=== PATIENT | female | born 1980 | race Caucasian/White ===

== ENCOUNTER 2018-08-27 08:44 | Observation (INO) | payer BC ==
[2018-08-27 09:15] LABS: PLATELET COUNT 325 10^3/uL (150-400)
[2018-08-27] MEDS ORDERED: NS 1,000 ML IV ONE (09:16)
[2018-08-27] MEDS ORDERED: ASPIRIN 81 MG CHEWABLE TAB PO ONE (09:16)
--- NOTE | 2018-08-27 09:22 | EDPHY ---
General Time Seen by Provider: 08/27/18 09:02 Narrative: CLINICAL IMPRESSION: Chest pain, shortness of breath ASSESSMENT/PLAN: 38-year-old female with no reported medical history presents to the emergency department with intermittent left anterior stabbing and heavy chest pain associated with shortness of breath that began yesterday morning. Pain became worse at 4:00 a.m. This morning and radiated into the left arm. Initial EKG shows inverted T-waves V1, V2, V3, and lead 3, no ST segment changes. HR variable in ED between upper 30's and low 70's. No hypoxia, tachypnea, or respiratory distress. Patient is otherwise healthy, has heart score of 2, no cardiac risk factors, no family history. She travels frequently for work. No asymmetric lower extremity swelling or calf pain. D-dimer negative, troponin negative, chest x-ray with no acute cardiopulmonary disease, remainder of lab work reassuring. On reassessment, patient is tearful, stating "I just do not feel right". Admits that she was feeling short of breath walking to the restroom. Had a long discussion with her regarding heart score and risk for adverse cardiac events. Despite a reassuring workup, patient clinically does not appear well and is feeling poorly. Based on this, admission was discussed and offered and patient has agreed. I discussed with Saira from hospitalist service. Patient will be admitted to Dr. Crenshaw service. DIFFERENTIAL DX: Differential diagnosis includes but not limited to myocardial ischemia, pulmonary embolus, chest wall pain, pleural inflammation, musculoskeletal chest wall pain, aortic aneurysm, and pulmonary infectious causes. ED PROCEDURES: See lab and/or imaging results below ED COURSE: EKG obtained at 9:15 a.m., interpreted by myself shortly thereafter. Patient has sinus rhythm, inverted T-waves in V1, V2, V3, and lead 3. Discussed EKG with Dr. Saldaña at 9:20 a.m. 10:00 a.m.:. Lab work all essentially normal, negative troponin, negative D- dimer, no anemia, electrolytes normal, renal function normal, chest x-ray with no acute abnormality. page technician reported patient felt very uncomfortable and short of breath walking to the restroom. She is a heart score of 2. Discussed again with Dr. Saldaña. Given the patient is feeling poorly, I will have shared decision making, review her heart score and discuss admission for further workup. 10:15 a.m.: Patient has decided to be admitted. Page to hospitalist. Declining further pain medication at this time. CHIEF COMPLAINT: Chest pain HPI: This is a 38-year-old otherwise healthy female who presents to the emergency department today with left anterior stabbing and heavy chest pain that began at 9:00 a.m. Yesterday while she was at work. Patient reports the pain was bad enough yesterday that she not only had to stop her conference call early but go home and rest. Pain was intermittent throughout the evening and night. She was a woken at 4:00 a.m. With worsening stabbing pain to the point that she was crying. She called her primary care doctor this morning and was told to come to the ED. She reports in route the pain was very severe but has wax and waned. She does currently have a dull pressure sensation that radiates slightly to the left arm. No radiation to the neck jaw or back. She did report some associated shortness of breath this morning and pain is worse when she lays down. She had no appetite to eat dinner last night but reports no vomiting and states she is "chronically nauseous". There is no pleuritic component to the pain. She has never had a pain like this before. No recent URI, cough, or underlying pulmonary disease. Patient reports she travels "all the time" for work, at least 150 days a year and at least once or twice a week. No reported asymmetric leg or calf swelling. No first-degree family relative with cardiac disease. She is a nonsmoker, does not use estrogen based control, reports no . She did not take anything for the pain this morning. She has an allergy to red dye PAST MEDICAL HISTORY: None reported See nurse/triage notes for additional history if applicable Pertinent Past Surgical History: None reported Family History: No first-degree family relative with cardiac disease Social History: Nonsmoker, , does not used estrogen based control REVIEW OF SYSTEMS: All other systems negative Constitutional: No fever, no chills, positive for appetite change. Eyes: No discharge, vision change ENT: No sore throat, congestion, ear pain. Cardiovascular: Positive for stabbing, pressure, chest pain no palpitations. Respiratory: No cough, positive for shortness of breath. Gastrointestinal: No abdominal pain, no vomiting, positive nausea, diarrhea. Genitourinary: No hematuria, dysuria, flank pain, pelvic pain Musculoskeletal: No back pain, joint swelling, joint pain, myalgias. Skin: No rashes, color change. Neurological: No headache, dizziness, weakness. PHYSICAL EXAM: General Appearance: Alert, oriented, appropriate, cooperative, appears intermittently uncomfortable, grabbing her left anterior chest, well hydrated, non-toxic appearing, hypotensive, no hypoxia. HEENT: Oropharynx clear is no erythema or exudates, no tonsillar hypertrophy or asymmetry. Dentition without abnormality.] Neck: Supple, nontender, no lymphadenopathy, no midline pain, FROM, no meningismus, no JVD. Respiratory: There are no retractions, lungs are clear to auscultation. Cardiac: Regular rate and rhythm, no murmurs or gallops. No reproducible chest pain to palpation of anterior chest wall Gastrointestinal: Abdomen is soft, nontender, bowel sounds normal, no masses/ hernia, no rigidity, guarding or focal peritoneal findings. Neurological: Alert and oriented x 3, CN 2-12 grossly intact, normal gait no ataxia, DTR's intact, normal sensation and strength Skin: Warm, dry, no rashes, no nodules on palpation. Musculoskeletal: Extremities are symmetrical, full range of motion, no tenderness, deformity, swelling, or erythema. No asymmetric calf pain, swelling or erythema Psychiatric: Patient is oriented X 3, there is no agitation. MEDICAL DECISION MAKING: Patient was seen independently. Secondary supervising physician at time of evaluation was Dr. Saldaña . Diagnosis: Chest pain, intermittent bradycardia, shortness of breath. New, requires workup Summary: See Assessment and Plan for summary of ED visit Clinical lab tests: ordered / reviewed. Independent visualization of images, tracing, or specimens: Yes. Decision to obtain medical records or history from someone other than the patient: No Review / Summarize previous medical records: None available Discussed patient with another provider: Saira Draper from hospital service Patient Progress: Stable. - Diagnostics Imaging Results: Imaging Impressions Chest X-Ray 08/27/18 09:04 Impression: Possible mild airways disease. Otherwise negative. - History Smoking Status: Never smoked - Objective Vital Signs: Initial Vital Signs Temperature (C) 36.4 C 08/27/18 08:51 Heart Rate 73 08/27/18 08:51 Respiratory Rate 16 08/27/18 08:51 Blood Pressure 94/62 L 08/27/18 08:51 O2 Sat (%) 95 08/27/18 08:51 O2 Delivery Mode Room Air Allergies/Adverse Reactions: red dye Allergy (Verified 08/27/18 08:50) Laboratory Results: Laboratory Results 08/27/18 09:05 08/27/18 09:05 08/27/18 08/27/18 08/27/18 09:10 09:10 09:07 WBC RBC Hgb Hct MCV MCH MCHC RDW Plt Count MPV Neut % (Auto) Lymph % (Auto) [place] % (Auto) Eos % (Auto) Baso % (Auto) Nucleat RBC Rel Count Absolute Neuts (auto) Absolute Lymphs (auto) Absolute Monos (auto) Absolute Eos (auto) Absolute Basos (auto) Absolute Nucleated RBC Immature Gran % Immature Gran # D-Dimer 0.40 ug/mLFEU ug/mLFEU (0.00-0.50) Sodium Potassium Chloride Carbon Dioxide Anion Gap BUN Creatinine Estimated GFR Glucose Calcium POC Troponin I 0.00 ng/mL ng/mL (0.00-0.08) Beta HCG, Qual NEGATIVE 08/27/18 08/27/18 09:05 09:05 WBC 7.18 10^3/uL 10^3/uL (3.80-9.50) RBC 5.02 10^6/uL 10^6/uL (4.18-5.33) Hgb 13.8 g/dL g/dL (12.6-16.3) Hct 42.1 % % (38.0-47.0) MCV 83.9 fL fL (81.5-99.8) MCH 27.5 pg L pg (27.9-34.1) MCHC 32.8 g/dL g/dL (32.4-36.7) RDW 13.6 % % (11.5-15.2) Plt Count 325 10^3/uL 10^3/uL (150-400) MPV 10.7 fL fL (8.7-11.7) Neut % (Auto) 51.2 % % (39.3-74.2) Lymph % (Auto) 40.1 % % (15.0-45.0) [place] % (Auto) 6.3 % % (4.5-13.0) Eos % (Auto) 1.5 % % (0.6-7.6) Baso % (Auto) 0.6 % % (0.3-1.7) Nucleat RBC Rel Count 0.0 % % (0.0-0.2) Absolute Neuts (auto) 3.68 10^3/uL 10^3/uL (1.70-6.50) Absolute Lymphs (auto) 2.88 10^3/uL 10^3/uL (1.00-3.00) Absolute Monos (auto) 0.45 10^3/uL 10^3/uL (0.30-0.80) Absolute Eos (auto) 0.11 10^3/uL 10^3/uL (0.03-0.40) Absolute Basos (auto) 0.04 10^3/uL 10^3/uL (0.02-0.10) Absolute Nucleated RBC 0.00 10^3/uL 10^3/uL (0-0.01) Immature Gran % 0.3 % % (0.0-1.1) Immature Gran # 0.02 10^3/uL 10^3/uL (0.00-0.10) D-Dimer Sodium 140 mEq/L mEq/L (135-145) Potassium 3.9 mEq/L mEq/L (3.5-5.2) Chloride 109 mEq/L mEq/L (97-110) Carbon Dioxide 22 mEq/l mEq/l (22-31) Anion Gap 9 mEq/L mEq/L (6-14) BUN 9 mg/dL mg/dL (7-23) Creatinine 0.8 mg/dL mg/dL (0.6-1.0) Estimated GFR > 60 Glucose 110 mg/dL H mg/dL (70-100) Calcium 9.0 mg/dL mg/dL (8.5-10.4) POC Troponin I Beta HCG, Qual Medications Given: Discontinued Medications Aspirin (Aspirin) 324 mg PO EDNOW ONE Stop: 08/27/18 09:17 Last Admin: 08/27/18 09:25 Dose: 324 mg Sodium Chloride (Ns) 1,000 mls @ 0 mls/hr IV EDNOW ONE; Wide Open PRN Reason: Protocol Stop: 08/27/18 09:17 Last Admin: 08/27/18 09:25 Dose: 1,000 mls Point of Care Test Results: Chemistry 08/27/18 09:07 POC Troponin I 0.00 ng/mL ng/mL (0.00-0.08) Departure - Departure Disposition: [facility] Inpatient Acute Clinical Impression: Shortness of breath Chest pain Qualifiers: Chest pain type: other chest pain Qualified Code(s): R07.89 - Other chest pain Condition: Fair Referrals: Ashley Sahni PA [Primary Care Provider] - As per Instructions
--- NOTE | 2018-08-27 09:46 | CPEKG ---
Test Reason : OPEN Blood Pressure : / mmHG Vent. Rate : 067 BPM Atrial Rate : 068 BPM P-R Int : 169 ms QRS Dur : 079 ms QT Int : 440 ms P-R-T Axes : 064 -26 -09 degrees QTc Int : 465 ms Sinus rhythm Borderline left axis deviation Low voltage, precordial leads Abnormal R-wave progression, early transition Nonspecific T abnormalities, anterior leads Confirmed by Eric Saldaña ([id number]) on 08/27/2018 9:46:16 AM Referred By: Eric Saldaña Confirmed By:Eric Saldaña
[2018-08-27] MEDS ORDERED: ONDANSETRON 4 MG/2 ML VIAL IVP PRN (11:53)
[2018-08-27] MEDS ORDERED: ACETAMINOPHEN 325 MG TAB PO PRN (11:53)
--- NOTE | 2018-08-27 12:25 | PDGENHP ---
History and Physical History and Physical: CC: Chest pains HISTORY: This patient is generally healthy overall comes to the ER today with chest pains that started yesterday morning. There are 3 different symptoms noted in the chest that all occur intermittently during this time. They are all in the upper anterior left chest. The initial onset was during a meeting at work yesterday morning. The 1st pain to occur which has recurred several times since then is a severe and sharp stabbing type pain. It is not pleuritic or associated other movements that she is aware of. The 2nd pain again and intermittent pain is more of a pressure or squeezing type of sensation in the same area. These do not occur together. The 2nd pain is also not aggravated by movements or activities that she is aware of. The 3rd discomfort is a very brief "flutter" like a butterfly in her chest lasting 1-2 seconds and is very intermittent not occurring in groups. At 1 point this morning she felt short of breath with all this. ROS: A comprehensive 10 system review revealed no other significant findings PAST MEDICAL HISTORY: Depression and anxiety disorder Gastric ulcer with bleeding Pneumonia Endometriosis Migraine A dog bite at age 8 leading to jaw fracture and surgical repair ACL repair Laparoscopic adhesion lysis after endometriosis procedures FAMILY MEDICAL HISTORY: Cancers of chest ovary and thyroid SOCIAL HISTORY: lives with Has never used any tobacco No street drugs MEDICATIONS: The patients list has been reconciled by our clinical pharmacist in the EMR. I have reviewed the list and ordered appropriate medicines. PHYSICAL EXAMINATION: Vital Signs: Vital Signs all stable without any fever Automotive Service Manager: All sinus, mildly bradycardic with some sinus arrhythmia but no ectopy or arrhythmia so far Examination: General: alert, oriented, good mentation Skin: warm, dry, good color, no rash HEENT: normal Neck: no mass or jvd Resps: relaxed Lungs: clear breath sounds Chest: No tenderness of the musculo/skeletal thoracic structures Heart: regular, no murmur Abdomen: soft, nondistended, nontender, +BS, no mass Upper Extremities: normal Lower Extremities: no edema, warm Neurologic: normal speech/language, normal surgery specialist, no focal weakness IV site: looks normal LABORATORY DATA: Normal 1st troponin Unremarkable CBC, metabolic panel, and normal beta HCG RADIOLOGY STUDIES: I reviewed images from chest x-ray done in the ER which is a normal chest x-ray 12 LEAD EKG: I reviewed tracing from ER EKG which shows sinus rhythm, some nonspecific T- wave inversions otherwise no signs of ischemia or other concerning changes. Initial EKG does not have any appearance of pericarditis ASSESSMENT: * Multiple chest pains, fairly nonspecific and atypical for ischemia * Heart score 2 * History of upper GI bleed from gastric ulcer * History of depression and anxiety disorder This does not really sound like a cardiac syndrome to me. There is no chest wall tenderness. The etiology is indeterminate at present PLANS: Will repeat 2 more troponins and consider treadmill testing here or as outpatient At this point just in case there is inflammatory illness will give her some Celebrex; acid suppression also warranted in case there is esophageal spasm particularly considering her GI history I have reviewed the patient's past medical records as part of this assessment, including outpatient clinic records from her primary care office
[2018-08-27 16:01] VITALS: BP 91/56
--- NOTE | 2018-08-27 17:46 | PDDCSUM ---
Discharge Summary Discharge Summary: DISCHARGE DIAGNOSES: * atypical chest pain, heart score 2 HOSPITAL COURSE SUMMARY: This patient presented to the hospital with more than 24 hr of ongoing chest pain with 3 different chest pain symptoms. Overall this was atypical chest pain for coronary disease. She has minimal risk factors and her heart score was 2. After informed discussion will for the patient for decision making in the ER she decided she wanted to be admitted the hospital. We observed her here during the hospital with no abnormalities on EKG monitoring, no heart failure, no vital sign abnormalities. Her symptoms were fairly nonspecific and there is nothing on examination to suggest a cause. At this point she is stable for discharge to home but is recommended that we she consider treadmill stress testing which she is going to do in the outpatient setting tomorrow. PENDING TEST RESULTS: None MEDICATION CHANGES: None FOLLOW-UP PLAN: Patient be scheduled for a treadmill stress test in the outpatient clinics tomorrow Greater than 35 minutes bedside and care coordination time today
[2018-08-27] MEDS ORDERED: MELATONIN 3 MG TAB PO SCH (21:00)
[2018-08-28] MEDS ORDERED: CYANO/VITAMIN B12 1000 MCG TAB PO SCH (09:00)
[2018-08-28] MEDS ORDERED: MULTIVITAMINS 1 EACH TAB PO SCH (09:00)
[2018-08-28] MEDS ORDERED: ASCORBIC ACID 500 MG TAB PO SCH (09:00)
[2018-08-28] MEDS ORDERED: OMEGA-3 FATTY ACIDS 1,000 MG CAP PO SCH (09:00)
--- NOTE | 2018-09-04 11:44 | CPEKG ---
Test Reason : OPEN Blood Pressure : / mmHG Vent. Rate : 068 BPM Atrial Rate : 067 BPM P-R Int : 173 ms QRS Dur : 083 ms QT Int : 431 ms P-R-T Axes : 057 -31 -26 degrees QTc Int : 459 ms Sinus rhythm Left axis deviation Abnormal R-wave progression, early transition Nonspecific T abnormalities, diffuse leads Confirmed by Tim Olivier ([id number]) on 09/04/2018 11:44:02 AM Referred By: Ha Crenshaw Confirmed By:Tim Olivier
== END 2018-08-27 17:54 | disposition home or self-care (01) ==
LOC: F2W 10:53
PROVIDERS: ADMIT Internal Medicine; ATTEND Internal Medicine
DX: R07.9 Chest pain, unspecified (principal); R06.02 Shortness of breath; E86.9 Volume depletion, unspecified; F32.9 Major depressive disorder, single episode, unspecified; F41.9 Anxiety disorder, unspecified; G43.909 Migraine, unspecified, not intractable, without status migrainosus; Z87.81 Personal history of (healed) traumatic fracture; Z87.19 Personal history of other diseases of the digestive system
CPT/HCPCS: 71046; 93005; 96360; 99285; G0378; 84484-ER